=== PATIENT | female | born 1955 | race Caucasian/White ===

== ENCOUNTER 2021-06-11 01:57 | Day surgery (SDC) | payer MEDICARE, SELFPAY ==
[2021-06-05 13:42] VITALS: BMI 31.0
--- NOTE | 2021-06-10 12:38 | PM.SD2 ---
Same Day Admit/Disch: HPI History of Present Illness Chief complaint: pigmented nevus of left leg Narrative: Luli Jacobson is a 65 year old female Who has a skin lesion on her left calf which has been changing and getting larger. She had a biopsy of this in July of 2020. This showed a benign junctional nevus. Despite the negative biopsy, the lesion itches and has developed color changes and irregular borders. She feels that it is larger. She is taken to surgery now for excision. [facility] Past Medical History Medical History (Updated 06/10/21 @ 12:44 by Ruy Capone MD) High cholesterol HTN (hypertension) Surgical History Surgical History (Updated 05/06/21 @ 10:13 by Sydni Parr [facility]) H/O: hysterectomy Family History Family History (Updated 05/06/21 @ 10:13 by Sydni Parr CMA) Father Heart disease Other Glioblastoma Other Heart disease Hypertension Social History Social History (Updated 05/06/21 @ 10:14 by Sydni Parr [facility]) Smoking status: Never smoker Second hand tobacco smoke exposure: No Alcohol intake: current Alcohol use details: [place] LAST ALCOHOL INTAKE 2019 Substance use: never Substance use type: does not use Living arrangements: with family Gender identity (if verbalized by the patient): Female Spiritual care concerns: No Same Day Admit/Disch: Med Pre-admit Medications Home Medications Medication Instructions Recorded Confirmed Type amlodipine 2.5 mg tablet 2.5 mg PO QAM 05/06/21 06/11/21 History estradiol 2 mg tablet 1 mg PO QAM 05/06/21 06/11/21 History lisinopril 5 mg tablet 5 mg PO QAM 05/06/21 06/11/21 History simvastatin 5 mg tablet 10 mg PO HS 05/06/21 06/11/21 History hydrocodone-acetaminophen 1 - 2 tablet PO Q6H PRN #7 tablet 06/11/21 Rx ibuprofen 600 mg PO Q6H PRN #14 tablet 06/11/21 Rx Exam Const: General: comfortable, no acute distress, alert and awake HENMT: Head: normocephalic and atraumatic Mouth: Yes Normal oral and palatal mucosa present Eyes: Conjunctivae: conjunctivae normal Pupils: Equal, round and reactive pupils present EOM: EOMs intact bilaterally Resp: Effort & Inspection: normal respiratory effort Auscultation: clear to auscultation bilaterally Cardio: Rate: regular rate Rhythm: regular rhythm Heart sounds: no gallops, no murmurs and no rubs Skin: Lesions: lesion noted left posterior lower leg size ( 1.5 x 1.7 cm), borders irregular, color brawny brown, consistency soft, morphology and surface erythematous flaking Rashes: no rashes Neuro: General: no focal motor deficits and CN's II-XI intact bilaterally Cranial nerves: Yes Equal, round and reactive pupils present, Yes Bilaterally intact EOM present, Yes facial symmetry and Yes Midline tongue present Speech: normal speech Motor exam (neuro): 5/5 motor strength present throughout and Motor abnormalities not present Extrem: General: no clubbing, cyanosis or edema and edema Psych: Affect: normal affect Thought process: Normal thought process present Insight: Good insight present (Psych) DS: Summary Time Spent with Patient Time attestation: Total time spent providing and/or coordinating discharge services: DS: Admitting Diagnosis Admitting Diagnosis Admitting Diagnosis: my lateral cystic nevus -larger changing and itches. Plan to excise under local anesthesia with IV sedation. The procedure risks benefits have been discussed. She understands and agrees to go ahead. DS: Discharge Diagnosis Discharge Diagnosis (1) Pigmented nevus: Qualifiers: Laterality: left Melanocytic nevus location: lower extremity Qualified Code(s): D22.72 - Melanocytic nevi of left lower limb, including hip Code(s): D22.9 - Melanocytic nevi, unspecified Status: Chronic Discharge Plan Discharge Patient Disposition: Home, Self-Care Discharge Instructions: activity as tolerated, avoid bumping or trauma to the surgical area may
--- NOTE | 2021-06-11 06:43 | WPDHPUPDATE1 ---
History and Physical Update Update Date/Time: 06/11/21 06:43 History and Physical has been reviewed, including an updated exam of the patient. There are NO changes in the patient's condition. Risks, benefits, and alternatives have been discussed and questions answered. Patient agrees to proceed with procedure.
[2021-06-11 08:05] VITALS: BP 124/61; PULSE 76; RESP 16; TEMP 36.4; O2SAT 100
[2021-06-11] MEDS: LACTATED RINGERS 1,000 ML 30 ML IV CONT (08:36)
--- NOTE | 2021-06-11 09:32 | WPDANESEPPF ---
Anes - Initial Pre Proc Eval Procedure: Operation Date: 06/11/21 10:00 Proposed Procedures p Excision Skin Lesion Left Leg - Ruy Capone MD Date/Time: 06/11/21 09:32 Surgeon: Ruy Capone MD Pre Op Diagnosis: pigmented nevus of left leg Patient Data Age: 65 Gender: F Height: 1.6 m Weight: 80.1 kg Last Vital Signs Temp 97.6 F 06/11/21 08:05 Pulse 76 06/11/21 08:05 Resp 16 06/11/21 08:05 BP 124/61 06/11/21 08:05 Pulse Ox 100 06/11/21 08:05 Allergies Allergy/AdvReac Type Severity Reaction Status Date / Time No Known Allergies Allergy Verified 06/11/21 08:15 Home Medications Medication Instructions Recorded Confirmed Type amlodipine 2.5 mg tablet 2.5 mg PO QAM 05/06/21 06/11/21 History estradiol 2 mg tablet 1 mg PO QAM 05/06/21 06/11/21 History lisinopril 5 mg tablet 5 mg PO QAM 05/06/21 06/11/21 History simvastatin 5 mg tablet 10 mg PO HS 05/06/21 06/11/21 History Patient hx anesthesia problems: none Family hx anesthesia problems: none PMFSH Past Medical History Medical History (Updated 06/10/21 @ 12:44 by Ruy Capone MD) High cholesterol HTN (hypertension) Surgical History Surgical History (Updated 05/06/21 @ 10:13 by Sydni Parr CMA) H/O: hysterectomy Family History Family History (Updated 05/06/21 @ 10:13 by Sydni Parr CMA) Father Heart disease Other Glioblastoma Other Heart disease Hypertension Social History Social History (Updated 05/06/21 @ 10:14 by Sydni Parr CMA) Smoking status: Never smoker Second hand tobacco smoke exposure: No Alcohol intake: current Alcohol use details: [place]ST ALCOHOL INTAKE 2019 Substance use: never Substance use type: does not use Living arrangements: with family Gender identity (if verbalized by the patient): Female Spiritual care concerns: No Anes - Eval Final PreProcedure Day of Procedure 06/11/21 09:32 Patient weight: overweight Heart: regular rate and rhythm Lungs: clear to auscultation Airway: Mallampati scale class II Neurological: alert and oriented Last oral intake: >/= 8 hours ASA classification: II Emergent: no Anesthetic plan: proceed Anesthesia type and monitoring: general GIVS and standard monitoring Informed Consent: The patient's anesthetic plan and its attendant risks and benefits were discussed with the patient/family/POA. Questions were solicited and answers provided to the satisfaction of the patient/family/POA.
--- NOTE | 2021-06-11 09:56 | SUR.PREOP ---
Dr. Capone and Dr. Cabrera notified that patient has childhood hx of rheumatic fever and takes antibiotics before procedures. [facility] ordered.
--- NOTE | 2021-06-11 10:07 | SUR.PREOP ---
Patient updated that surgery start time is delayed approximately 20-30 minutes.
[2021-06-11] MEDS: ceFAZolin 2 GM/D5W 50 ML 2 GM/50 ML BAG IVPB (11:00)
--- NOTE | 2021-06-11 11:16 | W.PM.PROC2 ---
Procedure Note - Detailed Date of Procedure 06/11/21 Pre-op Diagnosis pigmented nevus of left leg Post-op Diagnosis same Procedure Performed Excision 1.8 cm pigmented nevus left lower leg with 2 mm margins, 2.2 cm excision; layered 10.5 cm closure. Surgeon Ruy Capone MD [employer] Lazara CORTEZ Anesthesia MAC and local ( 0.5% Marcaine with epinephrine) Indications patient has an enlarging irregular skin lesion on the back of her left calf. Although biopsied and found to be a junctional nevus several months ago. It is continuing to get bigger and itches. She is taken to surgery now for excision Findings skin lesion as described Description of Procedure patient was marked in the preoperative holding area. She was taken to surgery and placed in right lateral decubitus position such that the lesion was exposed. Prep and drape was carried out. IV sedation was administered. A 10.5 cm ellipse was drawn in transverse orientation around the lesion. Local anesthetic was infiltrated into the skin and the subcutaneous the where the incision was anticipated. We then created the 10.5 cm ellipse and excised the skin and a small amount of subcutaneous with the lesion. It was sent to pathology in formalin. Cautery was used for hemostasis. The wound was closed in layers using interrupted 3 0 Vicryl suture 1st. Subcuticular interrupted 4 0 Vicryl skin suture were then placed. Finally vertical mattress sutures of 3 0 nylon were used to close the skin. The wound was dressed with Xeroform gauze 4 x 4 gauze and Medipore tape. Patient was returned to a supine position, awakened and taken to outpatient surgery in good condition. Counts were correct x2. Estimated Blood Loss 5 Drains No Packing No Pathology yes ( Skin lesion left calf) Complications None Condition stable Disposition same day
[2021-06-11] MEDS: BUPIVACAINE/EPINEPHRINE 0.5% 30 ML VIAL 20 ML INFILTRATE (11:39)
[2021-06-11 12:05] VITALS: BP 123/48; PULSE 63; RESP 14; O2SAT 99
[2021-06-11 12:35] VITALS: BP 126/50; PULSE 72; RESP 16
== END 2021-06-11 12:55 | disposition home or self-care (01) ==
PROVIDERS: PCP Internal Medicine; Visit Provider Surgery
PROC: (CPT 11403; principal; 2021-06-11 10:00)
DX: D22.72 Melanocytic nevi of left lower limb, including hip (principal); I10 Essential (primary) hypertension; E78.00 Pure hypercholesterolemia, unspecified
CPT/HCPCS: 11403; 12034; 88305; 88342; J0690; J1100; J2250; J2405; J2704; J3010; J7120